=== PATIENT | female | born 1995 | race African-American/Black ===

== ENCOUNTER 2018-10-02 18:44 | Emergency (ER) | payer SELFPAY ==
[~2018-10-02] VITALS: Ht 157.5 cm; Wt 47.6 kg
[2018-10-02 19:12] VITALS: BP 130/61
[2018-10-02 19:32] LABS: BILIRUBIN,URINE SMALL (NEG); CLARITY,URINE CLOUDY; COLOR,URINE YELLOW; NITRITE,URINE NEGATIVE (NEG); PROTEIN,URINE 100 mg/dL (NEG-TRACE)
[2018-10-02 19:40] LABS: BACTERIA,URINE MANY /HPF (0-FEW); SQUAMOUS EPITHELIAL CELL,UR MOD /LPF; WBC,URINE >40 /HPF (0-4)
[2018-10-02] MEDS ORDERED: CEPH250S30 PO (20:02)
--- NOTE | 2018-10-02 20:02 | PHYS DOC ---
Past Medical History Past Medical History: No Pertinent History Past Surgical History: No Surgical History Additional Information: Nonsmoker Alcohol Use: None Drug Use: None Adult General Chief Complaint Chief Complaint: PAIN ON URINATION HPI HPI 23-year-old female presents with 2-3 day history of increased urinary frequency with some dysuria. Patient reports concern for possible urinary tract infection. Patient denies any fever or chills. Denies hematuria. Denies flank pain. Patient reports last menstrual period was 5 weeks ago. Patient reports history of the postop which she obtained 2 months ago. Patient denies . Reports sexual activity which has been unprotected. Denies any current vaginal discharge or bleeding. Review of Systems Review of Systems Constitutional: Denies fever or chills Eyes: Denies redness or eye pain HENT: Denies nasal congestion or sore throat Respiratory: Denies cough or shortness of breath Cardiovascular: Denies chest pain or palpitations GI: Denies abdominal pain, nausea, or vomiting : Reports dysuria and increased urinary frequency Musculoskeletal: Denies back pain or joint pain Integument: Denies rash or skin lesions Neurologic: Denies headache, focal weakness or sensory changes Complete systems were reviewed and found to be within normal limits, except as documented in this note. Allergies Allergies Allergies Coded Allergies Type Severity Reaction Last Updated Verified No Known Drug Allergies 10/02/18 No Physical Exam Physical Exam Constitutional: Well developed, well nourished, no acute distress, non-toxic appearance HENT: Normocephalic, atraumatic Eyes: Conjunctiva normal, no discharge Neck: Normal range of motion, no tenderness, supple Cardiovascular: Heart rate normal, regular rhythm Lungs & Thorax: Bilateral breath sounds clear to auscultation, no wheezing Abdomen: Soft, no tenderness Skin: Warm, dry Neurologic: Alert and oriented X 3, no focal deficits noted Psychologic: Affect normal, judgement normal, mood normal Current Patient Data Lab Values Laboratory Tests Test 10/02/18 19:15 10/02/18 19:26 Urine Collection Type Unknown Urine Color Yellow Urine Clarity Cloudy Urine pH 7.0 Urine Specific Elfrida 1.025 Urine Protein 100 mg/dL (NEG-TRACE) Urine Glucose (UA) Negative mg/dL (NEG) Urine Ketones (Stick) >=80 mg/dL (NEG) Urine Blood Small (NEG) Urine Nitrite Negative (NEG) Urine Bilirubin Small (NEG) Urine Urobilinogen Dipstick 1.0 mg/dL (0.2 mg/dL) Urine Leukocyte Esterase Large (NEG) Urine RBC 6-10 /HPF (0-2) Urine WBC >40 /HPF (0-4) Urine Squamous Epithelial Cells Mod /LPF Urine Bacteria Many /HPF (0-FEW) Urine Mucus Marked /LPF POC Urine HCG, Qualitative Hcg positive (Negative) EKG EKG [] Radiology/Procedures Radiology/Procedures [] Course & Med Decision Making Course & Med Decision Making Pertinent Lab studies reviewed. (See chart for details) Patient presents with several day history concerning for possible urinary tract infection. Patient does report history of Depo-Medrol shots but has been off for the last 2 months. Patient does report sexual activity which is been unprotected. Urine also obtained which was positive. UA confirmed i nfection. Patient reports difficulty swallowing any type of pill. Prescription for liquid antibiotics given. Patient stable for discharge with outpatient follow-up with PCP/OB. OB referral provided. Discussed findings and plan with patient and fianc, who acknowledge understanding and agreement. Dragon Disclaimer Dragon Disclaimer This electronic medical record was generated, in whole or in part, using a voice recognition dictation system. Departure Departure Impression: Primary Impression: Urinary tract infection Additional Impression: Disposition: 01 HOME, SELF-CARE Condition: STABLE Referrals: NO PCP (PCP) JORDY SCHULER Jr, MD Patient Instructions: ABCs of , Urinary Tract Infection, [id number] Additional Instructions: Use over the counter Tylenol (liquid or chew tabs) for pain or discomfort. Obtain liquid or gummy vitamins. Scripts Cephalexin (CEPHALEXIN) 250 Mg/5 Ml Susp.recon 10 ML PO TID for 7 Days, #210 ML Prov: ROLLY WALL DO 10/02/18 Problem Qualifiers Primary Impression: Urinary tract infection Urinary tract infection type: acute cystitis Hematuria presence: with hematuria Qualified Codes: N30.01 - Acute cystitis with hematuria Additional Impression: Weeks of gestation: unspecified Qualified Codes: Z34.90 - Encounter for supervision of normal , unspecified, unspecified trimester ROLLY WALL DO October 02, 2018 20:02
--- NOTE | 2018-10-07 17:26 | VNOTE ---
CALL BACK NOTE CALL BACK Microbiology 10/02/18 Urine Culture - Final, Complete 10/02/18 Urine Culture Result 1 (NATE) - Final, Complete left VM regarding labs. 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
--- NOTE | 2018-10-08 12:22 | VNOTE ---
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
== END 2018-10-02 20:06 | disposition home or self-care (01) ==
LOC: ER 18:44
DX: O23.11 Infections of bladder in pregnancy, first trimester (principal); Z3A.01 Less than 8 weeks gestation of pregnancy
CPT/HCPCS: 81001; 81025; 87086; 99284